=== PATIENT | male | born 1935 | race Caucasian/White ===

== ENCOUNTER 2017-06-03 19:05 | Emergency (ER) | payer MEDICARE ==
[2017-06-03 20:13] LABS: Basophils % (Auto) 0.1 % (0.0-1.8); Hematocrit 38.5 % (35.5-45.6); Hemoglobin 12.8 gm/dl (11.8-15.2); Mean Corpuscular HGB Conc 33 % (32-34); Mean Corpuscular Hemoglobin 28 pg (28-32); Mean Corpuscular Volume 85 fl (84-94); Platelet Count 250 K/mm3 (140-440); Red Blood Count 4.53 M/mm3 (3.65-5.03); Red Cell Distribution Width 15.8 % (13.2-15.2); White Blood Count 9.1 K/mm3 (4.5-11.0)
[2017-06-03 20:31] LABS: Anion Gap 22 mmol/L; Blood Urea Nitrogen 27 mg/dL (9-20); Carbon Dioxide 24 mmol/L (22-30); Glucose 235 mg/dL (75-100); Potassium 4.1 mmol/L (3.6-5.0); Sodium 139 mmol/L (137-145)
[2017-06-03] MEDS ORDERED: MORPHINE IV ONE (20:55)
[2017-06-03] MEDS ORDERED: NACL 0.9% 1000 ML 1,000 ML IV ONE ×2 (20:55→23:42)
[2017-06-03] MEDS ORDERED: ZOFRAN IV ONE (20:55)
[2017-06-03] MEDS ORDERED: PEPCID IV ONE (20:56)
[2017-06-03] MEDS ORDERED: NORMODYNE IV ONE (20:57)
--- NOTE | 2017-06-03 21:02 | Emergency Department Report ---
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 EF of 55-60%. Normal LVEDP) Mode of arrival: Stretcher Limitations: No Limitations - History of Present Illness Initial Comments: 81-year-old male past medical history diabetes, CVA, hypertension, kidney stones , and previous appendectomy presents to the hospital complaining of pain, nausea and vomiting with by mouth tolerance since yesterday. Patient complain of generalized 5/10 abdominal pain as aching and cramping. Worse with palpation. No alleviating factors. Unable to eat, drink, or take medications today. Denies recent travel, sick contacts, fever, melena, hematochezia, or diarrhea. Severity scale (0 -10): 5 - Related Data Home Medications Medication Instructions Recorded Confirmed Last Taken Levothyroxine [Synthroid] 0.025 mcg PO DAILY 12/17/15 06/03/17 06/02/17 Metoprolol [Lopressor TAB] 50 mg PO DAILY 08/23/16 06/03/17 06/02/17 Irbesartan [Avapro] 300 mg PO ONCE 01/15/17 06/03/17 05/26/17 AtorvaSTATin [Lipitor] 20 mg PO QHS 06/03/17 06/03/17 06/02/17 Losartan [Cozaar] 50 mg PO QDAY 06/03/17 06/03/17 06/02/17 hydrALAZINE [Apresoline TAB] 100 mg PO BID 06/03/17 06/03/17 06/02/17 Previous Rx's Medication Instructions Recorded Last Taken Type Aspirin [Aspirin TAB] 325 mg PO QDAY #30 tablet 02/27/16 06/02/17 Rx HumuLIN N Kwikpen 10 units SC BID #1 02/27/16 06/02/17 Rx ISOSORBIDE MONOnitrate [Imdur ER] 30 mg PO QDAY #30 tablet 02/27/16 06/02/17 Rx Ondansetron [Zofran Odt] 4 mg PO Q8HR PRN #20 tab.rapdis 06/04/17 Unknown Rx traMADol [Ultram 50 MG tab] 50 mg PO Q6HR PRN #20 tablet 06/04/17 Unknown Rx Allergies Allergy/AdvReac Type Severity Reaction Status Date / Time ciprofloxacin [From Cipro] Allergy Intermediate Hives, RASH Verified 06/03/17 19 :52 ciprofloxacin HCl Allergy Intermediate Hives Verified 06/03/17 19:52 [From Cipro] ED Review of Systems ROS: Stated complaint: CHEST PAIN Other details as noted in HPI Comment: All other systems reviewed and negative Other: Constitutional: No fevers chills Eyes: No eye pain visual changes ENT: No ear pain or throat pain Neck: Denies pain Respiratory: Denies cough wheezing shortness of breath Cardiovascular: Denies chest pain, palpitations, syncope GI: As per HPI : Denies dysuria Musculoskeletal: Denies back pain Skin: Denies rash, lesions, erythema Neurologic: Denies headache, numbness, weakness Psychiatric: Denies suicidal ideation, hallucinations ED Past Medical Hx - Past Medical History Previous Medical History?: Yes Hx Hypertension: Yes Hx CVA: Yes Hx Heart Attack/AMI: No Hx Diabetes: Yes Hx Arthritis: Yes Hx Kidney Stones: Yes Hx HIV: No - Surgical History Hx Appendectomy: Yes - Social History Smoking Status: Never Smoker Substance Use Type: None - Medications Home Medications: Home Medications Medication Instructions Recorded Confirmed Last Taken Type Levothyroxine [Synthroid] 0.025 mcg PO DAILY 12/17/15 06/03/17 06/02/17 History Aspirin [Aspirin TAB] 325 mg PO QDAY #30 tablet 02/27/16 06/03/17 06/02/17 Rx HumuLIN N Kwikpen 10 units SC BID #1 02/27/16 06/03/17 06/02/17 Rx ISOSORBIDE MONOnitrate [Imdur ER] 30 mg PO QDAY #30 tablet 02/27/16 06/03/17 Rx Metoprolol [Lopressor TAB] 50 mg PO DAILY 08/23/16 06/03/17 06/02/17 History Irbesartan [Avapro] 300 mg PO ONCE 01/15/17 06/03/17 05/26/17 History AtorvaSTATin [Lipitor] 20 mg PO QHS 06/03/17 06/03/17 06/02/17 History Losartan [Cozaar] 50 mg PO QDAY 06/03/17 06/03/1706/02/17 History hydrALAZINE [Apresoline TAB] 100 mg PO BID 06/03/17 06/03/17 06/02/17 History Ondansetron [Zofran Odt] 4 mg PO Q8HR PRN #20 tab.rapdis 06/04/17 Unknown Rx traMADol [Ultram 50 MG tab] 50 mg PO Q6HR PRN #20 tablet 06/04/17 Unknown Rx ED Physical Exam - General Limitations: No Limitations - Other Other exam information: General: No limitations, patient is alert in no acute distress Head exam: Atraumatic, normocephalic Eyes exam: Normal appearance ENT: Moist mucous membrane, normal oropharynx Neck exam: Normal inspection Respiratory exam: Clear to auscultation bilateral, no wheezes, rales, crackles Cardiovascular: Normal rate and rhythm, normal heart sounds Abdomen: Soft, nondistended, generalized abdominal tenderness, normal bowel sounds Extremity: Full range of motion normal inspection no deformity Back: Normal Inspection, full range of motion, no tenderness Neurologic: Alert, oriented x3, cranial nerves intact, no motor or sensory deficit Psychiatric: normal affect, normal mood Skin: Warm, dry, intact ED Course Vital Signs 06/03/17 06/03/17 06/03/17 19:48 19:52 21:17 Temperature 99.1 F Pulse Rate 68 68 77 Respiratory 20 Rate Blood Pressure 227/78 Blood Pressure 227/78 [Right] O2 Sat by Pulse 96 Oximetry 06/03/17 06/03/17 06/04/17 21:26 22:00 00:00 Temperature Pulse Rate 77 78 77 Respiratory 16 20 20 Rate Blood Pressure Blood Pressure 189/69 184/76 198/90 [Right] O2 Sat by Pulse 96 98 99 Oximetry 06/04/17 06/04/17 01:00 02:00 Temperature Pulse Rate 66 67 Respiratory 20 20 Rate Blood Pressure 210/72 Blood Pressure 210/72 170/70 [Right] O2 Sat by Pulse 95 95 Oximetry - Reevaluation(s) Reevaluation #1: 06/03/17 21:00 Meds ordered: morphine, Zofran, Pepcid, NS. CT pending 06/04/17 01:53 Patient also received labetalol, clonidine, and insulin during ED stay Reevaluation #2: 09/16/17 01:54 At the family arrival they state the patient was having dizziness prior to the vomiting. Patient denies any dizziness or vertigo symptoms at this ED Medical Decision Making - Lab Data Result diagrams: 06/03/17 20:01 06/03/17 20:01 Lab Results 06/03/17 06/03/17 06/03/17 Range/Units 00:00 20:01 20:01 WBC 9.1 (4.5-11.0) K/mm3 RBC 4.53 (3.65-5.03) M/mm3 Hgb 12.8 (11.8-15.2) gm/dl Hct 38.5 (35.5-45.6) % MCV 85 (84-94) fl MCH 28 (28-32) pg MCHC 33 (32-34) % RDW 15.8 H (13.2-15.2) % Plt Count 250 (140-440) K/mm3 Lymph % (Auto) 14.8 (13.4-35.0) % [place] % (Auto) 4.6 (0.0-7.3) % Eos % (Auto) 0.0 (0.0-4.3) % Baso % (Auto) 0.1 (0.0-1.8) % Lymph # 1.4 (1.2-5.4) K/mm3 [place] # 0.4 (0.0-0.8) K/mm3 Eos # 0.0 (0.0-0.4) K/mm3 Baso # 0.0 (0.0-0.1) K/mm3 Seg Neutrophils % 80.5 H (40.0-70.0) % Seg Neutrophils # 7.4 (1.8-7.7) K/mm3 Sodium 139 (137-145) mmol/L Potassium 4.1 (3.6-5.0) mmol/L Chloride 97.0 L (98-107) mmol/L Carbon Dioxide 24 (22-30) mmol/L Anion Gap 22 mmol/L BUN 27 H (9-20) mg/dL Creatinine 0.9 (0.8-1.5) mg/dL Estimated GFR > 60 ml/min BUN/Creatinine Ratio 30.00 % Glucose 235 H (75-100) mg/dL POC Glucose (70-105) Calcium 9.0 (8.4-10.2) mg/dL Total Bilirubin (0.1-1.2) mg/dL Direct Bilirubin (0-0.2) mg/dL Indirect Bilirubin mg/dL AST (5-40) units/L ALT (7-56) units/L Alkaline Phosphatase (35-129) units/L Troponin T 0.010 0.010 (0.00-0.029) ng/mL Total Protein (6.3-8.2) g/dL Albumin (3.9-5) g/dL Albumin/Globulin Ratio % Lipase (13-60) units/L Urine Color (Yellow) Urine Turbidity (Clear) Urine pH (5.0-7.0) Ur Specific [place] (1.003-1.030) Urine Protein (Negative) mg/dL Urine Glucose (UA) (Negative) mg/dL Urine Ketones (Negative) mg/dL Urine Blood (Negative) Urine Nitrite (Negative) Urine Bilirubin (Negative) Urine Urobilinogen (<2.0) mg/dL Ur Leukocyte Esterase (Negative) Urine WBC (Auto) (0.0-6.0) /HPF Urine RBC (Auto) (0.0-6.0) /HPF U Epithel Cells (Auto) (0-13.0) /HPF Hyaline Casts /LPF Urine Mucus /HPF 06/03/17 06/03/17 06/04/17 Range/Units 20:01 21:18 00:07 WBC (4.5-11.0) K/mm3 RBC (3.65-5.03) M/mm3 Hgb (11.8-15.2) gm/dl Hct (35.5-45.6) % MCV (84-94) fl MCH (28-32) pg MCHC (32-34) % RDW (13.2-15.2) % Plt Count (140-440) K/mm3 Lymph % (Auto) (13.4-35.0) % [place] % (Auto) (0.0-7.3) % Eos % (Auto) (0.0-4.3) % Baso % (Auto) (0.0-1.8) % Lymph # (1.2-5.4) K/mm3 [place] # (0.0-0.8) K/mm3 Eos # (0.0-0.4) K/mm3 Baso # (0.0-0.1) K/mm3 Seg Neutrophils % (40.0-70.0) % Seg Neutrophils # (1.8-7.7) K/mm3 Sodium (137-145) mmol/L Potassium (3.6-5.0) mmol/L Chloride (98-107) mmol/L Carbon Dioxide (22-30) mmol/L Anion Gap mmol/L BUN (9-20) mg/dL Creatinine (0.8-1.5) mg/dL Estimated GFR ml/min BUN/Creatinine Ratio % Glucose (75-100) mg/dL POC Glucose 219 H (70-105) Calcium (8.4-10.2) mg/dL Total Bilirubin 0.60 (0.1-1.2) mg/dL Direct Bilirubin < 0.2 (0-0.2) mg/dL Indirect Bilirubin 0.4 mg/dL AST 25 (5-40) units/L ALT 16 (7-56) units/L Alkaline Phosphatase 78 (35-129) units/L Troponin T (0.00-0.029) ng/mL Total Protein 8.1 (6.3-8.2) g/dL Albumin 4.2 (3.9-5) g/dL Albumin/Globulin Ratio 1.1 % Lipase 19 (13-60) units/L Urine Color Yellow (Yellow) Urine Turbidity Clear (Clear) Urine pH 5.0 (5.0-7.0) Ur Specific [place] 1.024 (1.003-1.030) Urine Protein >500 (Negative) mg/dL Urine Glucose (UA) >=500 (Negative) mg/dL Urine Ketones 80 (Negative) mg/dL Urine Blood Neg (Negative) Urine Nitrite Neg (Negative) Urine Bilirubin Neg (Negative) Urine Urobilinogen < 2.0 (<2.0) mg/dL Ur Leukocyte Esterase Neg (Negative) Urine WBC (Auto) 2.0 (0.0-6.0) /HPF Urine RBC (Auto) 3.0 (0.0-6.0) /HPF U Epithel Cells (Auto) 2.0 (0-13.0) /HPF Hyaline Casts 1 /LPF Urine Mucus Few /HPF - EKG Data -: EKG Interpreted by Me (sinus rate 65 LAD, LVH) - EKG Data When compared to previous EKG there are: no significant change - Radiology Data Radiology results: report reviewed CT abdomen and pelvis IV contrast: No acute findings. Mild right middle lobe subsegmental atelectasis. Bilateral renal cysts. Mild right colonic diverticulosis without diverticulitis - Medical Decision Making Patient feels much better with ED treatment. Tolerating by mouth intake. - Differential Diagnosis gastritis, pancreatitis, biliary colic, diverticulitis, UTI Critical Care Time: No Critical care attestation.: If time is entered above; I have spent that time in minutes in the direct care of this critically ill patient, excluding procedure time. ED Disposition Clinical Impression: Diabetes 1.5, managed as type 2, Uncontrolled hypertension Vomiting Qualifiers: Vomiting Intractability: non-intractable Nausea presence: with nausea Abdominal pain Qualifiers: Abdominal location: upper abdomen, unspecified Qualified Code(s): R10.10 - Upper abdominal pain, unspecified Disposition: DC- TO HOME OR SELFCARE Is pt being admited?: No Does the pt Need Aspirin: No Condition: Stable Instructions: Diabetes Mellitus Type 2 in Adults (ED), Acute Nausea and Vomiting (ED), Acute Abdominal Pain (ED), Hypertension (ED) Additional Instructions: Take the medications as prescribed. Return is symptoms worsen. Prescriptions: Ondansetron [Zofran Odt] 4 mg PO Q8HR PRN #20 tab.rapdis PRN Reason: Pain traMADol [Ultram 50 MG tab] 50 mg PO Q6HR PRN #20 tablet PRN Reason: Pain Referrals: PRIMARY CARE, [Primary Care Provider] - 2-3 Days Time of Disposition: 02:33
[2017-06-03 21:35] LABS: Bilirubin,Urine NEG (Negative); Blood,Urine NEG (Negative); Ketones,Urine 80 mg/dL (Negative); Leukocyte Esterase,Urine NEG (Negative); Mucus,Urine FEW /HPF; Nitrite,Urine NEG (Negative); Urobilinogen,Urine < 2.0 mg/dL (<2.0)
[2017-06-03 21:40] LABS: Protein,Urine >500 mg/dL (Negative)
[2017-06-03 22:32] LABS: Alanine Aminotransferase 16 units/L (7-56); Albumin 4.2 g/dL (3.9-5); Albumin/Globulin Ratio 1.1 %; Alkaline Phosphatase 78 units/L (35-129); Lipase 19 units/L (13-60); Total Protein 8.1 g/dL (6.3-8.2)
[2017-06-03 22:36] LABS: Bilirubin,Direct < 0.2 mg/dL (0-0.2); Bilirubin,Indirect 0.4 mg/dL
--- NOTE | 2017-06-03 23:03 | Cat Scan Report ---
FINAL REPORT EXAM: CT ABDOMEN PELVIS W CON HISTORY: n,v,abd pain TECHNIQUE: Helical CT scan through the abdomen and pelvis during intravenous injection of iodinated contrast. Images are reconstructed in the sagittal and coronal planes. Oral contrast was not given. PRIORS: 01/15/2017 FINDINGS: Images through the lung bases show mild right middle lobe subsegmental atelectasis. The liver, gallbladder, pancreas, spleen and adrenal glands appear normal. There are numerous small cysts in the right kidney with the largest in the upper pole measuring 1.3 cm. There is no hydronephrosis. There are multiple left renal cysts with the largest in the lower pole measuring 4.5 cm, increased in size from 4.2 cm. The prostate is enlarged measuring 5.1 x 4.6 x 5.3 cm. There is a small hiatal hernia. Otherwise, the stomach appears grossly within normal limits. There are no abnormally dilated loops of bowel or acute inflammatory changes. The appendix is not discretely visualized but there are no inflammatory changes in the right lower quadrant around the area of the cecum. There is mild right colonic diverticulosis without evidence of acute diverticulitis. The abdominal aorta has a normal diameter. The lower thoracic and lumbar vertebrae are normal in height and alignment. The disc spaces are well preserved. There is advanced right degenerative facet disease at L3-4 IMPRESSION: 1. No acute findings in the abdomen/pelvis 2. Mild right middle lobe subsegmental atelectasis 3. Bilateral renal cysts. A 4.5 cm cyst in the lower pole of the left kidney has increased in size from 4.2 cm. 4. Mild right colonic diverticulosis without evidence of acute diverticulitis
[2017-06-04] MEDS ORDERED: CATAPRES PO ONE (00:22)
[2017-06-04 03:32] VITALS: BP 168/70
== END 2017-06-04 03:00 | disposition home or self-care (01) ==
LOC: ED 19:05
DX: E11.9 Type 2 diabetes mellitus without complications (principal); I10 Essential (primary) hypertension; R11.2 Nausea with vomiting, unspecified; R10.10 Upper abdominal pain, unspecified
CPT/HCPCS: 36415; 74177; 80048; 80074; 81001; 82962; 83690; 84484; 85025; 93005; 93010; 96361; 96374; 96375; 99285; J2270; J2405; J7030; Q9967; J1815

== ENCOUNTER 2017-12-05 11:50 | Outpatient (CLI) | payer MEDICARE ==
--- NOTE | 2017-12-05 13:17 | XRay Report ---
XRAY CHEST TWO VIEWS: 12/05/17 11:50:00 CLINICAL: Heart failure. COMPARISON: 01/17/17 FINDINGS: Normal heart and pulmonary vasculature. The lungs are normally expanded and clear. No airspace disease and no pleural effusion. Stable aortic tortuosity and ectasia. IMPRESSION: No acute cardiopulmonary process.Stable hypertensive/atherosclerotic changes in the aorta. No CHF.
== END 2017-12-05 11:51 | disposition home or self-care (01) ==
LOC: XRAY 11:50
PROVIDERS: ATTEND Internal Medicine
DX: I50.9 Heart failure, unspecified (principal); I77.819 Aortic ectasia, unspecified site
CPT/HCPCS: 71046

== ENCOUNTER 2018-11-21 10:48 | Outpatient (CLI) | payer MEDICARE | END 2018-11-21 10:49 | disposition home or self-care (01) | LOC: LAB 10:48 | PROVIDERS: ATTEND Internal Medicine | DX: E11.9 Type 2 diabetes mellitus without complications (principal); I10 Essential (primary) hypertension; E03.9 Hypothyroidism, unspecified; E66.9 Obesity, unspecified; E78.00 Pure hypercholesterolemia, unspecified; M19.90 Unspecified osteoarthritis, unspecified site; Z90.49 Acquired absence of other specified parts of digestive tract | CPT/HCPCS: 36415; 83036; 84443 ==

== ENCOUNTER 2019-01-24 11:00 | Outpatient (CLI) | payer MEDICARE | END 2019-01-24 11:01 | disposition home or self-care (01) | LOC: SLR 11:00 | PROVIDERS: ATTEND Otolaryngology | DX: G47.33 Obstructive sleep apnea (adult) (pediatric) (principal); R40.0 Somnolence; R06.83 Snoring; E66.9 Obesity, unspecified; E78.00 Pure hypercholesterolemia, unspecified; I10 Essential (primary) hypertension; E03.9 Hypothyroidism, unspecified | CPT/HCPCS: 95810 ==

== ENCOUNTER 2019-04-24 11:10 | Outpatient (CLI) | payer MEDICARE ==
[2019-04-24 12:14] LABS: Chol/HDL Ratio 3.21 %
[2019-04-25 11:16] LABS: Bilirubin,Urine NEG (Negative); Blood,Urine NEG (Negative); Color,Urine Yellow (Yellow); Protein,Urine <15 mg/dL mg/dL (Negative); Urobilinogen,Urine < 2.0 mg/dL (<2.0)
== END 2019-04-24 11:11 | disposition home or self-care (01) ==
LOC: LAB 11:10
PROVIDERS: ATTEND Internal Medicine
DX: N39.0 Urinary tract infection, site not specified (principal); E03.9 Hypothyroidism, unspecified; E78.5 Hyperlipidemia, unspecified; E11.9 Type 2 diabetes mellitus without complications
CPT/HCPCS: 36415; 80061; 81001; 83036; 84443; 87086

== ENCOUNTER 2019-09-07 09:44 | Outpatient (CLI) | payer MEDICARE ==
[2019-09-07 12:50] LABS: Basophils % (Auto) 0.5 % (0.0-1.8); Eosinophils # (Auto) 0.1 K/mm3 (0.0-0.4); Eosinophils % (Auto) 1.2 % (0.0-4.3); Hematocrit 38.1 % (35.5-45.6); Hemoglobin 12.7 gm/dl (11.8-15.2); Lymphocytes # (Auto) 2.9 K/mm3 (1.2-5.4); Lymphocytes % (Auto) 36.3 % (13.4-35.0); Mean Corpuscular HGB Conc 33 % (32-34); Mean Corpuscular Volume 92 fl (84-94); Monocytes # (Auto) 0.6 K/mm3 (0.0-0.8); Monocytes % (Auto) 7.9 % (0.0-7.3); Platelet Count 218 K/mm3 (140-440); Red Blood Count 4.12 M/mm3 (3.65-5.03); Red Cell Distribution Width 14.4 % (13.2-15.2)
[2019-09-07 13:01] LABS: Alanine Aminotransferase 13 units/L (7-56); Albumin 3.8 g/dL (3.9-5); BUN/Creatinine Ratio 17; Blood Urea Nitrogen 15 mg/dL (9-20); Calcium 8.9 mg/dL (8.4-10.2); Chol/HDL Ratio 2.46 %; HDL Cholesterol 49 mg/dL (40-59); Hemolysis Index 7; LDL Cholesterol,Direct 72 mg/dL (50-130)
[2019-09-11 14:01] LABS: Vitamin D, 25-OH, D2 <4 ng/mL
== END 2019-09-07 09:45 | disposition home or self-care (01) ==
LOC: LAB 09:44
PROVIDERS: ATTEND Internal Medicine
DX: E78.2 Mixed hyperlipidemia (principal); E13.9 Other specified diabetes mellitus without complications; Z13.21 Encounter for screening for nutritional disorder; Z13.29 Encounter for screening for other suspected endocrine disorder
CPT/HCPCS: 36415; 80053; 80061; 82306; 82607; 83036; 84443; 85025

== ENCOUNTER 2020-02-03 04:05 | Emergency (ER) | payer MEDICARE ==
[2020-02-03] MEDS ORDERED: levETIRAcetam 1000 MG/NS 0.75% 1,000 MG/100 ML BAG IV ONE (04:33)
[2020-02-03 04:36] LABS: Basophils % (Auto) 0.3 % (0.0-1.8); Eosinophils % (Auto) 0.4 % (0.0-4.3); Hematocrit 38.4 % (35.5-45.6); Hemoglobin 12.9 gm/dl (11.8-15.2); Lymphocytes # (Auto) 1.7 K/mm3 (1.2-5.4); Lymphocytes % (Auto) 19.5 % (13.4-35.0); Mean Corpuscular HGB Conc 34 % (32-34); Mean Corpuscular Volume 90 fl (84-94); Monocytes # (Auto) 0.9 K/mm3 (0.0-0.8); Monocytes % (Auto) 10.7 % (0.0-7.3); Platelet Count 218 K/mm3 (140-440); Red Blood Count 4.25 M/mm3 (3.65-5.03); Red Cell Distribution Width 14.6 % (13.2-15.2)
--- NOTE | 2020-02-03 04:37 | Cat Scan Report ---
CT HEAD WITHOUT CONTRAST INDICATION: MAIN: neuro deficits <6hrs or sx present upon awakening Rt side deficeit CODE STROKE [phone] TECHNIQUE: Axial slices were obtained through the head. Coronal and sagittal reformatted images were obtained. COMPARISON: CT scan dated 06/26/2016 FINDINGS: There is intraparenchymal hemorrhage in the left basal ganglia and left periventricular white matter. . Hemorrhage measures approximately 3 x 2.1 cm. There is surrounding edema. Small lacunar infarcts are noted in the left basal ganglia and left caudate nucleus. These appear unc hanged from the prior study. The ventricles are normal in size. There is approximately 2 mm of midline shift to the right. There is a small area of encephalomalacia in the left parietal lobe appears similar to the previous s tudy Bone windows demonstrate no acute osseous abnormality. Paranasal sinuses and mastoid air cells appear clear. TECHNIQUE: All CT scans at this facility use dose modulation, iterative reconstruction, automated ex posure control, weight based dosing, when appropriate, to reduce radiation dose to as low as reasonab ly achievable. IMPRESSION: 1. There is intraparenchymal hemorrhage in the left basal ganglia and inferior left periventricular w duane matter. There is some surrounding edema. There is approximately 2 mm of midline shift to the rig ht. CRITICAL RESULT: Dr. Villa called this report to Dr. Jones at time 0331 hours central time. Report was confirmed. Signer Name: Sachin Villa MD Signed: 02/03/2020 4:32 AM Workstation Name: [id number]
--- NOTE | 2020-02-03 04:39 | Emergency Department Report ---
ED Neuro Deficit HPI - General Chief Complaint: Altered Mental Status Stated Complaint: POSS STROKE Time Seen by Provider: 02/03/20 04:11 Source: EMS Mode of arrival: Stretcher Limitations: Altered Mental Status - History of Present Illness Initial Comments: 84-year-old male with a past medical history of hypertension elevated cholesterol, hypothyroid, COPD,and diabetes presents to the hospital complains of stroke symptoms. Patient apparently had a left MCA stroke back in 2016. History of present illness obtained from EMS who spoke to the at the scene. Apparently patient climbed out of bed approximately 1:30 AM and was unable to get him off of the floor. Patient laid on the floor until the son came over to help get him back into the bed. Patient is noted to have slurred speech and right-sided weakness and therefore EMS was contacted. Upon EMS arrival they noted slurred speech, right-sided facial droop, right arm and right leg weakness. Patient is alert and answers questions appropriately although speech is slurred and difficult to understand. Complains of a headache. denies anticoagulant use. She forgot to fill his aspirin prescription and he has not taken it in 1 month. Patient also apparently has history of left MCA stroke in 2016 and has residual right leg weakness with a limp at his baseline. - Related Data Home Medications: Home Medications Medication Instructions Recorded Confirmed Last Taken Levothyroxine [Synthroid] 0.025 mcg PO DAILY 12/17/15 02/03/20 07/03/18 25 mcg Metoprolol [Lopressor TAB] 50 mg PO DAILY 08/23/16 02/03/20 07/03/18 AtorvaSTATin [Lipitor] 20 mg PO QHS 06/03/17 02/03/20 07/03/18 Losartan [Cozaar] 50 mg PO QDAY 06/03/17 02/03/20 07/03/18 hydrALAZINE [Apresoline TAB] 100 mg PO BID 06/03/17 02/03/20 07/03/18 Previous Rx's Medication Instructions Recorded Last Taken Type HumuLIN N Kwikpen 10 units SC BID #1 02/27/16 06/02/17 Rx ISOSORBIDE MONOnitrate [Imdur ER] 30 mg PO QDAY #30 tablet 02/27/16 07/03/18 Rx Allergies/Adverse Reactions: Allergies Allergy/AdvReac Type Severity Reaction Status Date / Time ciprofloxacin [From Cipro] Allergy Intermediate Hives, RASH Verified 06/03/17 19:52 ciprofloxacin HCl Allergy Intermediate Hives Verified 06/03/17 19:52 [From Cipro] ED Review of Systems ROS: Stated complaint: POSS STROKE Other details as noted in HPI Comment: All other systems reviewed and negative ED Past Medical Hx - Past Medical History Hx Hypertension: Yes Hx CVA: Yes Hx Heart Attack/AMI: No Hx Diabetes: Yes Hx Arthritis: Yes Hx Kidney Stones: Yes Hx HIV: No - Surgical History Hx Appendectomy: Yes - Social History Smoking Status: Never Smoker - Medications Home Medications: Home Medications Medication Instructions Recorded Confirmed Last Taken Type Levothyroxine [Synthroid] 0.025 mcg PO DAILY 12/17/15 02/03/20 07/03/18 History 25 mcg HumuLIN N Kwikpen 10 units SC BID #1 02/27/16 02/03/20 06/02/17 Rx ISOSORBIDE MONOnitrate [Imdur ER] 30 mg PO QDAY #30 tablet 02/27/16 02/03/20 07/03/18 Rx Metoprolol [Lopressor TAB] 50 mg PO DAILY 08/23/16 02/03/20 07/03/18 History AtorvaSTATin [Lipitor] 20 mg PO QHS 06/03/17 02/03/20 07/03/18 History Losartan [Cozaar] 50 mg PO QDAY 06/03/17 02/03/20 07/03/18 History hydrALAZINE [Apresoline TAB] 100 mg PO BID 06/03/17 02/03/20 07/03/18 History ED Neuro Physical Exam - General Limitations: Altered Mental Status Suspected Stroke: Yes - NIHSS Assessment Interval: Baseline 1a. Level of Consciousness: alert/keenly responsive 1b. LOC Questions: answers 1 question correctly 1c. LOC Commands: performs tasks correctly 2. Best Gaze: normal 3. Visual: no visual loss 4. Facial Palsy: unilateral complete paralysis 5b. Motor Arm Right: no gravity effort 5a. Motor Arm Left: no drift 6a. Motor Leg Left: no drift 6b. Motor Leg Right: no gravity effort 7. Limb Ataxia: absent 8. Sensory: normal 9. Best Language: no aphasia 10. Dysarthria: mild/moderate dysarthria 11. Extinction/Inattention: no abnormality Total Score: 11 Stroke Severity: Moderate Stroke - Other Other exam information: General: No acute distress Head: Atraumatic Eyes: normal appearance, pupils equal reactive to ENT: Moist mucous membranes Neck: Normal appearance, no midline tenderness Chest: Clear to auscultation bilaterally CV: Regular rate and rhythm Abdomen: Soft, normal bowel sounds, nontender, nondistended, no rebound or guarding Back: Normal inspection Extremity: Normal inspection, full range of motion Neuro: Alert O x 2 see NIH stroke scale. GCS 15 Psych: Appropriate behavior Skin: No rash ED Course Vital Signs 02/03/20 02/03/20 02/03/20 04:09 04:21 05:15 Pulse Rate 80 76 85 Respiratory 22 22 Rate Blood Pressure 132/92 185/76 [Left] O2 Sat by Pulse 96 96 99 Oximetry 02/03/20 02/03/20 02/03/20 05:31 05:41 06:01 Pulse Rate 89 91 H 87 Respiratory 22 Rate Blood Pressure 180/73 175/71 143/62 [Left] O2 Sat by Pulse 95 Oximetry - Consultations Consultation #1: 02/03/20 05:00 Discussed with [facility] transfer service with Dr. 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 Dawson neurosurgeon. They have accepted patient for transfer to [facility] and expected bed to be ready within the next 1 to 2 hours - Lab Data Result diagrams: 02/03/20 04:23 02/03/20 04:23 Lab Results 02/03/20 02/03/20 02/03/20 Range/Units 04:23 04:23 04:23 WBC 8.5 (4.5-11.0) K/mm3 RBC 4.25 (3.65-5.03) M/mm3 Hgb 12.9 (11.8-15.2) gm/dl Hct 38.4 (35.5-45.6) % MCV 90 (84-94) fl MCH 30 (28-32) pg MCHC 34 (32-34) % RDW 14.6 (13.2-15.2) % Plt Count 218 (140-440) K/mm3 Lymph % (Auto) 19.5 (13.4-35.0) % [place] % (Auto) 10.7 H (0.0-7.3) % Eos % (Auto) 0.4 (0.0-4.3) % Baso % (Auto) 0.3 (0.0-1.8) % Lymph # 1.7 (1.2-5.4) K/mm3 [place] # 0.9 H (0.0-0.8) K/mm3 Eos # 0.0 (0.0-0.4) K/mm3 Baso # 0.0 (0.0-0.1) K/mm3 Seg Neutrophils % 69.1 (40.0-70.0) % Seg Neutrophils # 5.9 (1.8-7.7) K/mm3 PT 13.0 (12.2-14.9) Sec. INR 0.97 (0.87-1.13) APTT 26.6 (24.2-36.6) Sec. Thrombin Time (15.1-19.6) Sec. Sodium 140 (137-145) mmol/L Potassium 3.9 (3.6-5.0) mmol/L Chloride 102.9 (98-107) mmol/L Carbon Dioxide 27 (22-30) mmol/L Anion Gap 14 mmol/L BUN 18 (9-20) mg/dL Creatinine 0.8 (0.8-1.5) mg/dL Estimated GFR > 60 ml/min BUN/Creatinine Ratio 23 % Glucose 154 H (75-100) mg/dL Calcium 8.9 (8.4-10.2) mg/dL Troponin T 0.025 (0.00-0.029) ng/mL 02/03/20 Range/Units 04:23 WBC (4.5-11.0) K/mm3 RBC (3.65-5.03) M/mm3 Hgb (11.8-15.2) gm/dl Hct (35.5-45.6) % MCV (84-94) fl MCH (28-32) pg MCHC (32-34) % RDW (13.2-15.2) % Plt Count (140-440) K/mm3 Lymph % (Auto) (13.4-35.0) % [place] % (Auto) (0.0-7.3) % Eos % (Auto) (0.0-4.3) % Baso % (Auto) (0.0-1.8) % Lymph # (1.2-5.4) K/mm3 [place] # (0.0-0.8) K/mm3 Eos # (0.0-0.4) K/mm3 Baso # (0.0-0.1) K/mm3 Seg Neutrophils % (40.0-70.0) % Seg Neutrophils # (1.8-7.7) K/mm3 PT (12.2-14.9) Sec. INR (0.87-1.13) APTT (24.2-36.6) Sec. Thrombin Time 15.6 (15.1-19.6) Sec. Sodium (137-145) mmol/L Potassium (3.6-5.0) mmol/L Chloride (98-107) mmol/L Carbon Dioxide (22-30) mmol/L Anion Gap mmol/L BUN (9-20) mg/dL Creatinine (0.8-1.5) mg/dL Estimated GFR ml/min BUN/Creatinine Ratio % Glucose (75-100) mg/dL Calcium (8.4-10.2) mg/dL Troponin T (0.00-0.029) ng/mL - EKG Data -: EKG Interpreted by Mo EKG shows normal: sinus rhythm, ST-T waves (no stemi) Rate: normal (74) - Radiology Data Radiology results: report reviewed CT HEAD WITHOUT CONTRAST INDICATION: MAIN: neuro deficits <6hrs or sx present upon awakening Rt side deficeit CODE STROKE [phone] TECHNIQUE: Axial slices were obtained through the head. Coronal and sagittal reformatted images were obtained. COMPARISON: CT scan dated 06/26/2016 FINDINGS: There is intraparenchymal hemorrhage in the left basal ganglia and left periventricular white matter.. Hemorrhage measures approximately 3 x 2.1 cm. There is surroun ding edema. Small lacunar infarcts are noted in the left basal ganglia and left caudate nucleus. These appear unchanged from the prior study. The ventricles are normal in size. There is approximately 2 mm of midline shift to the right. There is a small area of encephalomalacia in the left parietal lobe appears similar to the previous study Bone windows demonstrate no acute osseous abnormality. Paranasal sinuses and mastoid air cells appear clear. TECHNIQUE: All CT scans at this facility use dose modulation, iterative reconstruction, automated exposure control, weight based dosing, when appropriate, to reduce radiation dose to as low as reasonably achievable. IMPRESSION: 1. There is intraparenchymal hemorrhage in the left basal ganglia and inferior left periventricular white matter. There is some surrounding edema. There is approximately 2 mm of midline shift to the right. CRITICAL RESULT: Dr. Villa called this report to Dr. Jones at time 0331 hours central time. Report was confirmed. - Medical Decision Making Patient presents to the hospital with acute hemorrhagic stroke and uncontrolled hypertension. Patient treated with Keppra and Cardene drip. Patient's mental anticoagulation or antiplatelet agents. Family at the bedside and inform of patient's diagnosis and plan for transfer to [facility] once a bed is available. 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 Patient's mental status will be continued to be monitored with intubation if mental status deteriorates - Differential Diagnosis Hemorrhagic stroke, encephalopathy, ischemic stroke Critical Care Time: Yes Critical care time in (mins) excluding proc time.: 35 Critical care attestation.: If time is entered above; I have spent that time in minutes in the direct care of this critically ill patient, excluding procedure time. ED Disposition Clinical Impression: Cerebral hemorrhage, acute, Hypertensive emergency Disposition: DC/TX-70 ANOTHER TYPE HLTHCARE Is pt being admited?: No Condition: Stable Referrals: PRIMARY CARE, [Primary Care Provider] - 3-5 Days Time of Disposition: 05:01 (accepted by [facility])
--- NOTE | 2020-02-03 04:48 | Emergency Department Report ---
ED Neuro Deficit HPI - General Chief Complaint: Altered Mental Status Stated Complaint: POSS STROKE Time Seen by Provider: 02/03/20 04:11 Source: EMS Mode of arrival: Stretcher Limitations: Altered Mental Status - History of Present Illness Initial Comments: [facility] Tele[facility]urology Consult Services TeleStroke Metrics: LKW: 0130 Door Time: 0405 [facility] Contacted: 0329 [facility] at Bedside: 0409 NIHSS: 0420 Decision on Alteplase: Not to give due to his acute left basal ganglia intracranial hemorrhage. Interventional Candidate: Not a candidate due to his acute left basal ganglia intracranial hemorrhage. Chief Complaint: Right-sided weakness and AMS HPI: Asked to see this patient in emergent telemedicine consultation utilizing interactive audio and video technologies. ?Consultation was performed with assistance of ancillary / medical staff at bedside. Verbal consent to perform the examination with telemedicine was obtained. Patient agreed to proceed with the consultation for acute stroke protocol. 84-year-old male who comes to the emergency room by EMS as a stroke alert for right-sided weakness and slurred speech. No family currently at bedside. Patient apparently had a left MCA stroke back in 2016. He apparently is not on any blood thinners. EMS reports that the patient was last known well around 1:30 AM when he was getting on to the floor. His apparently observed him getting on the floor. At some point, he could not get up off the floor. The called another family member, and they noted he had right-sided weakness and slurred speech. They therefore called 911. Current head [address] showed an acute left basal ganglia hemorrhage. PMH: Hypertension, diabetes mellitus, hypothyroidism, BPH, prior left MCA stroke in 2016 SOC: Negative x3. Patient is . FMH: Unknown. ROS: 13 point review systems were reviewed with the patient, and are all negative with the exception of the aforementioned in the history of present illness. VS: EMS blood pressure 132/92, pulse 80, respiration 20 Exam: Patient is in no apparent distress. Patient appears as stated age. No obvious acute respiratory or cardiac distress. Patient is well groomed and well-nourished. 1a- LOC: Keenly responsive - 0 1b- LOC questions: Answers 1 question correctly - 1 1c- LOC commands- Performs both tasks correctly- 0 2- Gaze: Normal; no gaze paresis or gaze deviation - 0 3- Visual Kwan: normal, no Visual field deficit - 0 4- Facial movements: right facial palsy - 1 5- Upper limb motor right arm drift - 4 6- Lower limb motor right leg drift - 4 7- Limb Coordination: absent ataxia - 0 8- Sensory: right sensory loss - 2 9- Language - mild aphasia - 1 10- Speech - Mild dysarthria - 1 11- Neglect / Extinction - none found - 0 NIHSS score: 14 Diagnostic Data: CT of the head showed an acute left basal ganglia hemorrhage. Blood sugar 137 Medical Data Reviewed: 1.Data?reviewed include clinical labs, radiology,?and medical tests; 2.Tests?results discussed w/performing or interpreting physician; 3.Obtaining/reviewing old medical records; 4.Obtaining?case history from another source; 5.Independent?review of image, tracing, or specimen. Medical Decision Making: - Extensive number of diagnosis or management options are considered below. - Extensive amount of complex data reviewed. - High risk of complication and/or morbidity or mortality are associated with differential diagnostic considerations below. - There may be?uncertain?outcome and increased probability of prolonged functional impairment or high probability of severe prolonged functional impairment associated with some of these differential diagnosis. Assessment: 1. Acute left basal ganglia intracranial hemorrhage 2. Hypertension 3. Diabetes mellitus 4. Hypothyroidism 5. Prior left MCA stroke in 2016 Recommendations: Maintain systolic blood pressure to be less than 150. Patient will be transferred to a tertiary center that can offer neurosurgery evaluation. Continue supportive care. Thank you for allowing [facility] to participate in the care of your patient. Please call me, Dr. Gonzalez, with any questions at [phone]. Case discussed with the ER staff and Dr. Joens. Critical Care notation: I was called to see this critical patient emergently. I personally evaluated this critical patient for acute stroke evaluation, and determining their eligibility for IV Alteplase and interventional therapies. I have spent approxi mately 14 minutes with the patient, including time at bedside, time discussing the case with other physicians, reviewing plan of care, and time independently reviewing the records and scans. - Related Data Home Medications: Home Medications Medication Instructions Recorded Confirmed Last Taken Levothyroxine [Synthroid] 0.025 mcg PO DAILY 12/17/15 02/03/20 07/03/18 25 mcg Metoprolol [Lopressor TAB] 50 mg PO DAILY 12/02/0102/03/20 07/03/18 AtorvaSTATin [Lipitor] 20 mg PO QHS 06/03/17 02/03/20 07/03/18 Losartan [Cozaar] 50 mg PO QDAY 06/03/17 02/03/20 07/03/18 hydrALAZINE [Apresoline TAB] 100 mg PO BID 06/03/17 02/03/20 07/03/18 Previous Rx's Medication Instructions Recorded Last Taken Type HumuLIN N Kwikpen 10 units SC BID #1 02/27/16 06/02/17 Rx ISOSORBIDE MONOnitrate [Imdur ER] 30 mg PO QDAY #30 tablet 02/27/16 07/03/18 Rx Allergies/Adverse Reactions: Allergies Allergy/AdvReac Type Severity Reaction Status Date / Time ciprofloxacin [From Cipro] Allergy Intermediate Hives, RASH Verified 06/03/17 19:52 ciprofloxacin HCl Allergy Intermediate Hives Verified 06/03/17 19:52 [From Cipro] ED Review of Systems ROS: Stated complaint: POSS STROKE Other details as noted in HPI ED Past Medical Hx - Past Medical History Previous Medical History?: Yes Hx Hypertension: Yes Hx CVA: Yes Hx Heart Attack/AMI: No Hx Diabetes: Yes Hx Arthritis: Yes Hx Kidney Stones: Yes Hx HIV: No - Surgical History Hx Appendectomy: Yes - Social History Smoking Status: Never Smoker - Medications Home Medications: Home Medications Medication Instructions Recorded Confirmed Last Taken Type Levothyroxine [Synthroid] 0.025 mcg PO DAILY 12/17/15 02/03/20 07/03/18 History 25 mcg HumuLIN N Kwikpen 10 units SC BID #1 02/27/16 02/03/20 06/02/17 Rx ISOSORBIDE MONOnitrate [Imdur ER] 30 mg PO QDAY #30 tablet 02/27/16 02/03/20 07/03/18 Rx Metoprolol [Lopressor TAB] 50 mg PO DAILY 08/23/16 02/03/20 07/03/18 History AtorvaSTATin [Lipitor] 20 mg PO QHS 06/03/17 02/03/20 07/03/18 History Losartan [Cozaar] 50 mg PO QDAY 06/03/17 02/03/20 07/03/18 History hydrALAZINE [Apresoline TAB] 100 mg PO BID 06/03/17 02/03/20 07/03/18 History ED Neuro Physical Exam - General Limitations: Altered Mental Status Suspected Stroke: No ED Course Vital Signs 02/03/20 04:09 Pulse Rate 80 Respiratory 22 Rate Blood Pressure 132/92 [Left] O2 Sat by Pulse 96 Oximetry - Lab Data Result diagrams: 02/03/20 04:23 Lab Results 02/03/20 Range/Units 04:23 WBC 8.5 (4.5-11.0) K/mm3 RBC 4.25 (3.65-5.03) M/mm3 Hgb 12.9 (11.8-15.2) gm/dl Hct 38.4 (35.5-45.6) % MCV 90 (84-94) fl MCH 30 (28-32) pg MCHC 34 (32-34) % RDW 14.6 (13.2-15.2) % Plt Count 218 (140-440) K/mm3 Lymph % (Auto) 19.5 (13.4-35.0) % [place] % (Auto) 10.7 H (0.0-7.3) % Eos % (Auto) 0.4 (0.0-4.3) % Baso % (Auto) 0.3 (0.0-1.8) % Lymph # 1.7 (1.2-5.4) K/mm3 [place] # 0.9 H (0.0-0.8) K/mm3 Eos # 0.0 (0.0-0.4) K/mm3 Baso # 0.0 (0.0-0.1) K/mm3 Seg Neutrophils % 69.1 (40.0-70.0) % Seg Neutrophils # 5.9 (1.8-7.7) K/mm3 Critical care attestation.: If time is entered above; I have spent that time in minutes in the direct care of this critically ill patient, excluding procedure time. ED Disposition Clinical Impression: Cerebral hemorrhage, acute Disposition: DC/TX-70 ANOTHER TYPE HLTHCARE Is pt being admited?: No Does the pt Need Aspirin: No Condition: Stable
[2020-02-03 04:49] LABS: INR 0.97 (0.87-1.13)
[2020-02-03 04:50] LABS: Partial Thromboplastin Time 26.6 Sec. (24.2-36.6)
[2020-02-03 04:52] LABS: BUN/Creatinine Ratio 23; Blood Urea Nitrogen 18 mg/dL (9-20); Calcium 8.9 mg/dL (8.4-10.2); Hemolysis Index 20
[2020-02-03] MEDS ORDERED: niCARdipine 50 MG in SODIUM CHLORIDE 0.9% 250ML 230 ML IV SCH (05:00)
[2020-02-03 06:36] VITALS: BP 143/62
== END 2020-02-03 08:00 | disposition other institution (70) ==
LOC: ED 04:05
DX: R29.810 Facial weakness (principal); I61.4 Nontraumatic intracerebral hemorrhage in cerebellum; I16.1 Hypertensive emergency; E11.9 Type 2 diabetes mellitus without complications; M13.88 Other specified arthritis, other site; Z86.73 Personal history of transient ischemic attack (TIA), and cerebral infarction without residual deficits; Z90.49 Acquired absence of other specified parts of digestive tract; Z88.1 Allergy status to other antibiotic agents
CPT/HCPCS: 36415; 70450; 80048; 82962; 84484; 85025; 85610; 85670; 85730; 93005; 96365; 96366; 96375; 99291; J1953; J7050; 96374

== ENCOUNTER 2020-09-25 07:27 | Outpatient (CLI) | payer MEDICARE ==
--- NOTE | 2020-09-25 11:25 | Fluoroscopy Report ---
MODIFIED BARIUM SWALLOW INDICATION: CVA/DYSPAGIA TECHNIQUE: Swallowing was evaluated in the lateral position under direct fluoroscopy. FINDINGS: The patient was evaluated with thin liquids, puree, semisolid and solid consistencies. No aspiration or penetration was witnessed. Please correlate with the formal report by speech therapy . IMPRESSION: Unremarkable exam. Fluoroscopic time: 1.3 minutes Number of fluoroscopic images: 1 Signer Name: Kleber Baez Jr, MD Signed: 09/25/2020 11:20 AM Workstation Name: [id number]
== END 2020-09-25 07:28 | disposition home or self-care (01) ==
LOC: PT 07:27
PROVIDERS: ATTEND Internal Medicine
DX: R13.10 Dysphagia, unspecified (principal); I69.959 Hemiplegia and hemiparesis following unspecified cerebrovascular disease affecting unspecified side; G45.9 Transient cerebral ischemic attack, unspecified; R27.8 Other lack of coordination
CPT/HCPCS: 74230

== ENCOUNTER 2021-05-23 06:00 | Emergency (ER) | payer MEDICARE ==
[2021-05-23] MEDS ORDERED: SODIUM CHLORIDE 0.9% 1000 ML 1,000 ML IV ONE (07:49)
[2021-05-23] MEDS ORDERED: MORPHINE 4 MG/1 ML INJ IV ONE (07:57)
[2021-05-23] MEDS ORDERED: ONDANSETRON 4 MG/2 ML INJ IV ONE (07:57)
--- NOTE | 2021-05-23 07:58 | Emergency Department Report ---
ED Abdominal Pain HPI - General Stated Complaint: URINE RETENTION PUI?: No Time Seen by Provider: 05/23/21 07:49 Source: patient, educational interpreter, old records reviewed Limitations: Language Barrier - History of Present Illness Initial Comments: spanish medical interpreter at the bedside assisted with history taking Chief complaint abdominal pain HPI: This is an 85-year-old male history of diabetes mellitus, hypertension, CVA, hyperlipidemia, ureteral stricture who presents to the emergency department with abdominal pain and decreased urine output. Patient was recently admitted and discharged from this hospital for COVID-19, sepsis urinary retention and acute kidney injury. Campbell catheter placed during last admission. Patient returns via EMS for periumbilical abdominal pain for 5 days. Dull. Moderate in severity. No radiation. Constant. According to electronic medical record patient was discharged on yesterday. MD Complaint: abdominal pain -: days(s) (5 days) Location: periumbilical Radiation: none Migration to: no migration Severity: moderate Severity scale (0 -10): 8 Consistency: constant Improves With: nothing Worsens With: nothing Associated Symptoms: other (Decreased urine output) - Related Data Previous Rx's Medication Instructions Recorded Last Taken Type HumuLIN N Kwikpen 10 units SC BID #1 02/27/16 06/02/17 Rx Apixaban [Eliquis] 2 tab PO Q12H 7 Days #28 tablet 05/22/21 Unknown Rx Apixaban [Eliquis] 5 mg PO Q12H #60 tablet 05/22/21 Unknown Rx AtorvaSTATin [Lipitor] 20 mg PO QHS #30 tab 05/22/21 Unknown Rx Famotidine [Pepcid] 10 mg PO BID #30 tablet 05/22/21 Unknown Rx ISOSORBIDE MONOnitrate [Imdur ER] 30 mg PO QDAY #30 tablet 05/22/21 Unknown Rx Levothyroxine [Synthroid] 25 mcg PO QDAY@0600 #30 tablet 05/22/21 Unknown Rx Metoprolol [Lopressor TAB] 50 mg PO DAILY #30 tablet 05/22/21 Unknown Rx hydrALAZINE [Apresoline TAB] 100 mg PO BID #60 tab 05/22/21 Unknown Rx Allergies Allergy/AdvReac Type Severity Reaction Status Date / Time ciprofloxacin [From Cipro] Allergy Intermediate Hives, RASH Verified 05/17/21 13:18 ciprofloxacin HCl Allergy Intermediate Hives Verified 05/17/21 13:18 [From Cipro] ED Review of Systems ROS: Stated complaint: URINE RETENTION Other details as noted in HPI Comment: All other systems reviewed and negative Constitutional: malaise. denies: chills, fever Respiratory: denies: cough, shortness of breath Cardiovascular: denies: chest pain Gastrointestinal: abdominal pain. denies: nausea, vomiting, diarrhea ED Past Medical Hx - Past Medical History Previous Medical History?: Yes Hx Hypertension: Yes Hx CVA: Yes Hx Heart Attack/AMI: No Hx Congestive Heart Failure: No Hx Diabetes: Yes Hx Arthritis: Yes Hx Kidney Stones: Yes Hx Asthma: No Hx COPD: No Hx HIV: No Additional medical history: enlarged prostate, urethral stricture - Surgical History Hx Appendectomy: Yes Additional Surgical History: prostate - Social History Smoking Status: Never Smoker - Medications Home Medications: Home Medications Medication Instructions Recorded Confirmed Last Taken Type HumuLIN N Kwikpen 10 units SC BID #1 02/27/16 05/20/21 06/02/17 Rx Apixaban [Eliquis] 2 tab PO Q12H 7 Days #28 tablet 05/22/21 Unknown Rx Apixaban [Eliquis] 5 mg PO Q12H #60 tablet 05/22/21 Unknown Rx AtorvaSTATin [Lipitor] 20 mg PO QHS #30 tab 05/22/21 Unknown Rx Famotidine [Pepcid] 10 mg PO BID #30 tablet 05/22/21 Unknown Rx ISOSORBIDE MONOnitrate [Imdur ER] 30 mg PO QDAY #30 tablet 05/22/21 Unknown Rx Levothyroxine [Synthroid] 25 mcg PO QDAY@0600 #30 tablet 05/22/21 Unknown Rx Metoprolol [Lopressor TAB] 50 mg PO DAILY #30 tablet 05/22/21 Unknown Rx hydrALAZINE [Apresoline TAB] 100 mg PO BID #60 tab 05/22/21 Unknown Rx ED Physical Exam - General Limitations: Language Barrier General appearance: alert, in no apparent distress, other (Nontoxic appears frail, urine Present in catheter tubing) - Head Head exam: Present: atraumatic, normocephalic - Eye Eye exam: Present: normal appearance - ENT ENT exam: Present: mucous membranes moist - Neck Neck exam: Present: normal inspection, full ROM - Respiratory Respiratory exam: Present: normal lung sounds bilaterally. Absent: respiratory distress, wheezes, rales, rhonchi - Cardiovascular Cardiovascular Exam: Present: normal rhythm, tachycardia, normal heart sounds. Absent: systolic murmur, diastolic murmur, rubs, gallop - GI/Abdominal GI/Abdominal exam: Present: soft, distended, diminished bowel sounds. Absent: tenderness, guarding, rebound - Extremities Exam Extremities exam: Present: normal inspection - Neurological Exam Neurological exam: Present: alert, oriented X3 - Psychiatric Psychiatric exam: Present: normal affect, normal mood - Skin Skin exam: Present: warm, dry, intact, normal color. Absent: rash ED Course Vital Signs 05/23/21 05/23/21 05/23/21 07:55 08:00 08:16 Pulse Rate 117 H 109 H 122 H Respiratory 31 H 26 H 15 Rate Blood Pressure 142/89 05/23/21 05/23/21 05/23/21 08:31 08:45 09:20 Pulse Rate 117 H 94 H Respiratory 24 22 18 Rate Blood Pressure 142/89 142/89 - Catheter Insertion (Urinary) Indications: to alleviate urinary retention Prophylactic Antibiotics Given: No Bladder Scan/US before Catherization: Yes (CT Scan) Type of Catheter Inserted: coude tip Catheter Trinidadian Size: 14 Results: successfully catherized-immediate flow, ultrasound used for placement verification (using ultrasound: Unable to visualize balloon in bladder CT scan ordered) ED Medical Decision Making - Lab Data Result diagrams: 05/23/21 08:10 05/23/21 08:10 Laboratory Results - last 24 hr 05/23/21 05/23/21 08:10 08:10 WBC 6.0 RBC 3.86 Hgb 12.0 Hct 35.1 L D MCV 91 MCH 31 MCHC 34 RDW 14.0 Plt Count 414 Add Manual Diff Complete Total Counted 100 Seg Neuts % (Manual) 72.0 H Band Neutrophils % 2.0 Lymphocytes % (Manual) 17.0 Monocytes % (Manual) 8.0 H Metamyelocytes % 1.0 Nucleated RBC % 1.0 H Seg Neutrophils # Man 4.3 Band Neutrophils # 0.1 Lymphocytes # (Manual) 1.0 L Abs React Lymphs (Man) 0.0 Monocytes # (Manual) 0.5 Eosinophils # (Manual) 0.0 Basophils # (Manual) 0.0 Metamyelocytes # 0.1 Myelocytes # 0.0 Promyelocytes # 0.0 Blast Cells # 0.0 WBC Morphology Not Reportable Hypersegmented Neuts Not Reportable Hyposegmented Neuts Not Reportable Hypogranular Neuts Not Reportable Smudge Cells Not Reportable Toxic Granulation Not Reportable Toxic Vacuolation Not Reportable Dohle Bodies Not Reportable Pelger-Huet Anomaly Not Reportable Kevin Rods Not Reportable Platelet Estimate Consistent w auto Clumped Platelets Not Reportable Plt Clumps, EDTA Not Reportable Large Platelets Not Reportable Giant Platelets Not Reportable Platelet Satelliting Not Reportable Plt Morphology Comment Not Reportable RBC Morphology Normal Dimorphic RBCs Not Reportable Polychromasia Not Reportable Hypochromasia Not Reportable Poikilocytosis Not Reportable Anisocytosis Not Reportable Microcytosis Not Reportable Macrocytosis Not Reportable Spherocytes Not Reportable Pappenheimer Bodies Not Reportable Sickle Cells Not Reportable Target Cells Not Reportable Tear Drop Cells Not Reportable Ovalocytes Not Reportable Helmet Cells Not Reportable He-[place] Bodies Not Reportable Quinault Rings Not Reportable [place] Cells Not Reportable Bite Cells Not Reportable Crenated Cell Not Reportable Elliptocytes Not Reportable Acanthocytes (Spur) Not Reportable Rouleaux Not Reportable Hemoglobin C Crystals Not Reportable Schistocytes Not Reportable Malaria parasites Not Reportable Nelson Bodies Not Reportable Hem Pathologist Commnt No Sodium 142 Potassium 3.6 Chloride 106.5 Carbon Dioxide 26 Anion Gap 13 BUN 11 Creatinine 1.3 D Estimated GFR 53 BUN/Creatinine Ratio 8 Glucose 154 H Calcium 8.9 Total Bilirubin 0.60 Direct Bilirubin < 0.2 Indirect Bilirubin 0.4 AST 27 ALT 23 Alkaline Phosphatase 78 Total Protein 7.5 D Albumin 2.9 L Albumin/Globulin Ratio 0.6 - Radiology Data Radiology results: report reviewed [facility] [address] [place] [address] Cat Scan Report Signed Patient: JUAN CARLOS GRIGGS MR#: [id number] : 1935 Acct:[id number] Age/Sex: 85 / M ADM Date: 05/23/21 Loc: ED Attending Dr: Ordering Physician: Nivia Ahmadi MD Date of Service: 05/23/21 Procedure(s): CT abdomen pelvis wo con Accession Number(s): [id number] cc: Nivia Ahmadi MD CT ABDOMEN AND PELVIS WITHOUT CONTRAST INDICATION / CLINICAL INFORMATION: Pt complains of Periumbilical abdominal pain. TECHNIQUE: Axial CT images were obtained through the abdomen and pelvis without IV contrast. All CT scans at this location are performed using CT dose reduction for ALARA by means of automated exposure control. COMPARISON: Ultrasound 05/17/2021. FINDINGS: LOWER CHEST: 5 mm nodule right lower lobe series 2 image 4. Small left pleural effusion. Bronchial thickening lower lobes. LIVER: No significant abnormality. GALLBLADDER: Small hyperdense gallstones without evidence of cholecystitis. BILE DUCTS: No significant abnormality. PANCREAS: No significant abnormality. SPLEEN: No significant abnormality. ADRENALS: No significant abnormality. RIGHT KIDNEY / URETER: Dcng-[id number] right hydronephrosis. LEFT KIDNEY / URETER: Mild to moderate left hydronephrosis. Cyst at lower pole measuring 1.8 cm. STOMACH / SMALL BOWEL: Small hiatal hernia. Small bowel is nondilated. COLON: No significant abnormality. APPENDIX: Not visualized. PERITONEUM: No free fluid. No free air. No fluid collection. LYMPH NODES: No significant adenopathy. AORTA / ARTERIES: Moderate atherosclerotic calcification without acute abnormality. IVC / VEINS: No significant abnormality. URINARY BLADDER: Urinary bladder is very distended with gas, likely from recent Campbell placement. REPRODUCTIVE ORGANS: The Campbell catheter balloon is in the prostatic urethra. ADDITIONAL FINDINGS: None. SKELETAL SYSTEM: Degenerative changes are present throughout the spine. No destructive osseous lesion. IMPRESSION: 1. Bilateral bpta-bb-[id number] hydronephrosis with distention of the urinary bladder. The Campbell catheter balloon is in the prostatic urethra. The Campbell catheter needs to be replaced. 2. Mild cholelithiasis. 3. Small left pleural effusion. 4. Single incidental pulmonary nodule(s) in the right lower lobe measuring 5 mm with perifissural/subpleural characteristics. Recommendation according to Fleischner Society 2017 Guidelines: Low Risk or High Risk Patient: No routine follow-up. Signer Name: Lamine Casey MD Signed: 05/23/2021 10:27 AM Workstation Name: [id number] Transcribed By: DB Dictated By: LAMINE CASEY MD Electronically Authenticated By: LAMINE CASEY MD Signed Date/Time: 05/23/21 1027 DD/ 1021 TD/TT: [facility] [address] [place] [address] Cat Scan Report Signed Patient: JUAN CARLOS GRIGGS MR#: [id number] : 1935 Acct:[id number] Age/Sex: 85 / M ADM Date: 05/23/21 Loc: ED Attending Dr: Ordering Physician: Nivia Ahmadi MD Date of Service: 05/23/21 Procedure(s): CT pelvis wo con Accession Number(s): [id number] cc: Nivia Ahmadi MD CT PELVIS WITHOUT CONTRAST INDICATION / CLINICAL INFORMATION: Campbell catheter replacement / Urinary retention. TECHNIQUE: Axial CT images were obtained through the pelvis without contrast. All CT scans at this location are performed using CT dose reduction for ALARA by means of automated exposure control. COMPARISON: CT abdomen and pelvis without contrast performed today. FINDINGS: BOWEL: No significant abnormality. APPENDIX: Not visualized. PERITONEUM: No free fluid. No free air. No fluid collection. LYMPH NODES: No significant adenopathy. ARTERIES: Moderate atherosclerotic calcification without acute abnormality. VEINS: No significant abnormality. URINARY BLADDER: The Campbell catheter now appropriately terminates within the urinary bladder with expected decompression of the bladder. Gas within the bladder is likely related to catheter placement. REPRODUCTIVE ORGANS: Similar mild enlargement and calcification of the prostate gland. ADDITIONAL FINDINGS: Small amounts of gas along the abdominal wall are likely related to recent injections. SKELETAL SYSTEM: No significant interval changes. IMPRESSION: Appropriate positioning of the Campbell catheter. No other significant interval changes. Signer Name: Wil Renteria MD Signed: 05/23/2021 2:13 PM Workstation Name: [id number] Transcribed By: ILIANA Dictated By: Wil Renteria MD Electronically Authenticated By: Wil Renteria MD Signed Date/Time: 05/23/21 1413 DD/ 1410 TD/TT: - Medical Decision Making Acute urinary retention: Bladder outlet obstruction leading to bilateral hydronephrosis, 14 Trinidadian coud catheter inserted. 800 cc total of urine expressed. Patient received 1 L normal saline upon arrival in anticipation of postobstructive diuresis. CBC chemistry was normal limits. Clear urine. I do not suspect UTI. Patient is discharged home. Repeat heart rate 61 bpm upon discharge. Critical care attestation.: If time is entered above; I have spent that time in minutes in the direct care of this critically ill patient, excluding procedure time. ED Disposition Clinical Impression: Acute urinary retention, Bladder outlet obstruction Disposition: 01 HOME / SELF CARE / HOMELESS Is pt being admited?: No Does the pt Need Aspirin: No Condition: Stable Instructions: Acute Urinary Retention, Male, [id number], Indwelling Urinary Catheter Care, Adult, [id number] Referrals: KADE SIMPOSN MD [Staff Physician] - 3-5 Days
[2021-05-23 08:56] LABS: Hematocrit 35.1 % (35.5-45.6); Mean Corpuscular HGB Conc 34 % (32-34); Mean Corpuscular Volume 91 fl (84-94); Platelet Count 414 K/mm3 (140-440); Red Blood Count 3.86 M/mm3 (3.65-5.03)
[2021-05-23 09:17] LABS: Alanine Aminotransferase 23 units/L (7-56); Albumin 2.9 g/dL (3.9-5); BUN/Creatinine Ratio 8; Blood Urea Nitrogen 11 mg/dL (9-20); Calcium 8.9 mg/dL (8.4-10.2); Hemolysis Index 4
[2021-05-23 09:24] LABS: Bilirubin,Direct < 0.2 mg/dL (0-0.2)
--- NOTE | 2021-05-23 10:32 | Cat Scan Report ---
CT ABDOMEN AND PELVIS WITHOUT CONTRAST INDICATION / CLINICAL INFORMATION: Pt complains of Periumbilical abdominal pain. TECHNIQUE: Axial CT images were obtained through the abdomen and pelvis without IV contrast. All CT scans at this location are performed using CT dose reduction for ALARA by means of automated exposure control. COMPARISON: Ultrasound 05/17/2021. FINDINGS: LOWER CHEST: 5 mm nodule right lower lobe series 2 image 4. Small left pleural effusion. Bronchial th ickening lower lobes. LIVER: No significant abnormality. GALLBLADDER: Small hyperdense gallstones without evidence of cholecystitis. BILE DUCTS: No significant abnormality. PANCREAS: No significant abnormality. SPLEEN: No significant abnormality. ADRENALS: No significant abnormality. RIGHT KIDNEY / URETER: Lmkd-vd-xqnpsteo right hydronephrosis. LEFT KIDNEY / URETER: Mild to moderate left hydronephrosis. Cyst at lower pole measuring 1.8 cm. STOMACH / SMALL BOWEL: Small hiatal hernia. Small bowel is nondilated. COLON: No significant abnormality. APPENDIX: Not visualized. PERITONEUM: No free fluid. No free air. No fluid collection. LYMPH NODES: No significant adenopathy. AORTA / ARTERIES: Moderate atherosclerotic calcification without acute abnormality. IVC / VEINS: No significant abnormality. URINARY BLADDER: Urinary bladder is very distended with gas, likely from recent Campbell placement. REPRODUCTIVE ORGANS: The Campbell catheter balloon is in the prostatic urethra. ADDITIONAL FINDINGS: None. SKELETAL SYSTEM: Degenerative changes are present throughout the spine. No destructive osseous lesion . IMPRESSION: 1. Bilateral mtjh-dl-czqyccyq hydronephrosis with distention of the urinary bladder. The Campbell cathet er balloon is in the prostatic urethra. The Campbell catheter needs to be replaced. 2. Mild cholelithiasis. 3. Small left pleural effusion. 4. Single incidental pulmonary nodule(s) in the right lower lobe measuring 5 mm with perifissural/sub pleural characteristics. Recommendation according to Fleischner Society 2017 Guidelines: Low Risk or High Risk Patient: No routine follow-up. Signer Name: Lamine Casey MD Signed: 05/23/2021 10:27 AM Workstation Name: [id number]
[2021-05-23 11:58] LABS: Band Neutrophils # (Manual) 0.1 K/mm3; Platelet Estimate Consistent w Auto; RBC Morphology Normal; Total Cells Counted 100
--- NOTE | 2021-05-23 14:18 | Cat Scan Report ---
CT PELVIS WITHOUT CONTRAST INDICATION / CLINICAL INFORMATION: Campbell catheter replacement / Urinary retention. TECHNIQUE: Axial CT images were obtained through the pelvis without contrast. All CT scans at this [facility] are performed using CT dose reduction for ALARA by means of automated exposure control. COMPARISON: CT abdomen and pelvis without contrast performed today. FINDINGS: BOWEL: No significant abnormality. APPENDIX: Not visualized. PERITONEUM: No free fluid. No free air. No fluid collection. LYMPH NODES: No significant adenopathy. ARTERIES: Moderate atherosclerotic calcification without acute abnormality. VEINS: No significant abnormality. URINARY BLADDER: The Campbell catheter now appropriately terminates within the urinary bladder with expe cted decompression of the bladder. Gas within the bladder is likely related to catheter placement. REPRODUCTIVE ORGANS: Similar mild enlargement and calcification of the prostate gland. ADDITIONAL FINDINGS: Small amounts of gas along the abdominal wall are likely related to recent injec tions. SKELETAL SYSTEM: No significant interval changes. IMPRESSION: Appropriate positioning of the Campbell catheter. No other significant interval changes. Signer Name: Wil Renteria MD Signed: 05/23/2021 2:13 PM Workstation Name: [id number]
[2021-05-23 14:42] VITALS: BP 142/75
== END 2021-05-23 19:46 | disposition home or self-care (01) ==
LOC: ED 06:00
DX: R33.9 Retention of urine, unspecified (principal); N32.0 Bladder-neck obstruction; I10 Essential (primary) hypertension; Z86.73 Personal history of transient ischemic attack (TIA), and cerebral infarction without residual deficits; Z88.8 Allergy status to other drugs, medicaments and biological substances
CPT/HCPCS: 36415; 51702; 72192; 74176; 80048; 80076; 85007; 85025; 96361; 96374; 96375; 99284; J2270; J2405; J7030

== ENCOUNTER 2021-10-28 06:36 | Day surgery (SDC) | payer MEDICARE ==
[~2021-10-28 06:36] MED LIST: IOHEXOL 300 MG/ML 50ML IV ONE; WATER FOR IRRIG STERILE 2000 ML IR ONE
[2021-10-28] MEDS ORDERED: ceFAZolin/STERILE WATER 2 GM/20 ML SYRINGE IV NR (11:55)
[2021-10-28] MEDS ORDERED: LACTATED RINGERS 1,000 ML ONE (12:13)
[2021-10-28] MEDS ORDERED: ceFAZolin/Water 2 GM/20 ML 2 GM/20 ML SYRINGE IV ONE (12:13)
[2021-10-28] MEDS ORDERED: ONDANSETRON 4 MG/2 ML INJ IV PRN (12:52)
[2021-10-28] MEDS ORDERED: HYDROmorphone 1 MG/1 ML INJ IV PRN ×2 (12:52)
--- NOTE | 2021-10-28 12:52 | Anesthesia Day of Surgery ---
Anesthesia Day of Surgery - Day of Surgery Patient Examined: Yes Patient H&P Reviewed: Yes Patient is NPO: Yes (Was supposed to be done last month-COVID +)
[2021-10-28] MEDS ORDERED: LACTATED RINGERS 1,000 ML IV SCH (13:30)
[2021-10-28] MEDS ORDERED: propofoL 200 MG/20 ML VIAL IV ONE (14:06)
[2021-10-28] MEDS ORDERED: HYDROmorphone 1 MG/1 ML INJ ONE (14:06)
--- NOTE | 2021-10-28 14:13 | Post Operative Note ---
Date of procedure: 10/28/21 Pre-op diagnosis: urinary retention Post-op diagnosis: same Findings: stricture Procedure: spt cysto Anesthesia: GETA Surgeon: KADE SIMPSON Estimated blood loss: minimal Pathology: none Condition: stable Disposition: PACU
--- NOTE | 2021-10-28 14:14 | Discharge Summary ---
Short Stay Discharge Plan Activity: other (no straining ) Weight Bearing Status: Partial Weight Bearing Diet: low fat, low cholesterol, low salt Special Instructions: other Durable Medical Equipment Needed Upon Discharge: other (spt ) Follow up with: LIVIER GOLDSMITH MD [Primary Care Provider] - 7 Days KADE SIMPSON MD [Staff Physician] - 7 Days
[2021-10-28] MEDS ORDERED: IOHEXOL 300 MG/ML 50ML IV ONE (14:49)
[2021-10-28] MEDS ORDERED: WATER FOR IRRIG STERILE 2000 ML IR ONE (14:49)
[2021-10-28] MEDS ORDERED: LIDOCAINE MPF (2%) 20 MG/1 ML VIAL 5 ML ONE (15:07)
[2021-10-28] MEDS ORDERED: FUROSEMIDE 40 MG/4 ML INJ ONE (15:07)
--- NOTE | 2021-10-28 15:40 | Post Anesthesia Evaluation ---
- Post Anesthesia Evaluation Patient Participated: Yes Airway Patent: Yes Stable Respiratory Function: Yes Nausea/Vomiting: No Temp > 96.8F: Yes Pain Manageable: Yes Adequeate Hydration: Yes Anesthesia Complications: No Block Receding Appropriately: Not Applicable Patient on Ventilator: No
--- NOTE | 2021-10-28 16:00 | Fluoroscopy Report ---
INTRAOPERATIVE FLUOROSCOPY: ABDOMEN AND PELVIS INDICATION / CLINICAL INFORMATION: URINARY RETENTION. TECHNIQUE: Intraoperative spot images were obtained during the procedure. FINDINGS: Interprocedural images from cystogram. Please refer to operative report for further information. Fluoroscopy Time: 10 seconds. Fluoroscopy Images: 5. Signer Name: Nate Champion MD Signed: 10/28/2021 3:55 PM Workstation Name: [id number]
--- NOTE | 2021-10-28 16:51 | Operative Report ---
DATE OF SURGERY: 10/28/2021 PREOPERATIVE DIAGNOSES: Neurogenic bladder, prostatic enlargement, urinary retention, previous multiple strokes, nonambulatory. POSTOPERATIVE DIAGNOSES: Neurogenic bladder, prostatic enlargement, urinary retention, previous multiple strokes, nonambulatory. PROCEDURES: Cystoscopy, insertion of suprapubic cystostomy. SURGEON: Behzad Gates M.D. ANESTHESIA: General. FINDINGS: This is a gentleman who has multiple medical problems, is quite ill, cannot ambulate, multiple strokes, weak bladder, prostatic enlargement, previous strictures, now presents for suprapubic tube. He has a chronic Campbell. He has splitting of the urethra and pain. 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 He now presents for suprapubic tube. DESCRIPTION OF PROCEDURE: The patient was brought to the operating room and placed on the operating table. Following induction of anesthesia, placed in lithotomy position, prepped and draped in usual sterile fashion. It was hard to stretch out one of the legs because of his previous stroke. The urethral stricture was easily bypassed and once we got into the bladder, there was 3 to 4+ trabeculation. The bladder neck was open, but there was clearly some bilobar and some trilobar hypertrophy. He is not a good candidate for TURP. At this point, the Lowsley was placed and we cut down on the Lowsley and placed a 20-Ukrainian Silastic catheter. The patient tolerated the procedure well. This was in good position. A cystogram confirmed a slightly malrotated patient with excellent position of the tube. The patient tolerated the procedure well and brought to recovery in stable condition. TID: [id number] RECEIPT: [id number] [facility]
[2021-10-29 06:54] VITALS: BP 148/61
== END 2021-10-28 17:15 | disposition home or self-care (01) ==
LOC: OR 06:36
PROVIDERS: ATTEND Urology
DX: N31.8 Other neuromuscular dysfunction of bladder (principal); N40.0 Benign prostatic hyperplasia without lower urinary tract symptoms; R33.8 Other retention of urine; I10 Essential (primary) hypertension; E66.9 Obesity, unspecified; E11.65 Type 2 diabetes mellitus with hyperglycemia; I25.10 Atherosclerotic heart disease of native coronary artery without angina pectoris; E03.9 Hypothyroidism, unspecified; G93.41 Metabolic encephalopathy; E78.00 Pure hypercholesterolemia, unspecified; M19.90 Unspecified osteoarthritis, unspecified site; Z98.890 Other specified postprocedural states; Z88.8 Allergy status to other drugs, medicaments and biological substances; Z79.899 Other long term (current) drug therapy; Z87.01 Personal history of pneumonia (recurrent); Z79.4 Long term (current) use of insulin; Z98.41 Cataract extraction status, right eye; Z98.42 Cataract extraction status, left eye; Z90.49 Acquired absence of other specified parts of digestive tract; Z68.27 Body mass index [BMI] 27.0-27.9, adult; Z87.440 Personal history of urinary (tract) infections; Z86.73 Personal history of transient ischemic attack (TIA), and cerebral infarction without residual deficits; Z82.49 Family history of ischemic heart disease and other diseases of the circulatory system
CPT/HCPCS: 51102; 74430; J0690; J1170; J1940; J2704; J3490; J7120; Q9967; C1758; C1769